=== PATIENT | female | born 2000 | race Caucasian/White ===

== ENCOUNTER 2021-01-12 13:10 | Emergency (ER) | payer OTHER ==
[~2021-01-12] VITALS: Ht 180.3 cm; Wt 67.3 kg
[2021-01-12 15:43] VITALS: BP 128/74; PULSE 61; TEMP 98.3
== END 2021-01-12 15:44 | disposition home or self-care (01) ==
LOC: COL.ER 13:10
DX: R51.9 Headache, unspecified (principal); Z20.822 Contact with and (suspected) exposure to COVID-19
CPT/HCPCS: J1885